=== PATIENT | male | born 1970 | race Caucasian/White ===

== ENCOUNTER 2020-10-23 15:11 | Emergency (ER) | payer MEDICAID, OTHER ==
[~2020-10-23] VITALS: Ht 167.6 cm; Wt 59.0 kg
[2020-10-23 16:08] LABS: Hematocrit 32.7 % (41.0-53.0); Hemoglobin 10.8 g/dL (13.5-17.5); Mean Corpuscular Hemoglobin 27.7 pg (28.0-32.0); Mean Corpuscular Volume 83.8 fL (80.0-100.0); Red Blood Cells 3.91 10^6/uL (4.5-5.90); Red Cell Distribution Width 18.4 % (11.8-14.3)
[2020-10-23 16:13] LABS: White Blood Cell 1.5 10^3/uL (4.4-10.8)
[2020-10-23 16:15] LABS: Band Neutrophils % (manual) 0; Basophils % (manual) 0 (0.0-2.0); Blast Cells 0; Metamyelocytes % 0; Myelocytes % 0; Promyelocytes % 0; Reactive Lymphocytes 0
[2020-10-23 16:30] LABS: Eosinophils % (manual) 2 (0-7); Lymphocytes % (manual) 31 (10.0-50.0); Monocytes % (manual) 18 (0-12)
[2020-10-23 16:31] LABS: Alkaline Phosphatase 91 U/L (45-117); Bilirubin, Total 0.2 mg/dL (0.2-1.0); Total Protein 7.2 g/dL (6.4-8.2)
[2020-10-23 16:52] LABS: Chloride 110 mmol/L (98-107); Potassium 3.8 mmol/L (3.5-5.1); Sodium 141 mmol/L (136-145)
[2020-10-23 17:02] LABS: Alanine Aminotransferase 53 U/L (16-61); Anion Gap 5 (5-15); Aspartate Aminotransferase 51 U/L (15-37); BUN/Creatinine Ratio 14.8; Blood Urea Nitrogen 9 mg/dL (7-18); Carbon Dioxide 26 mmol/L (21-32); GFR African American 179 mL/min; GFR Non-African American 148 mL/min; Glucose 96 mg/dL (74-106)
[2020-10-23 17:03] LABS: Calcium 8.3 mg/dL (8.5-10.1); Lipase 237 U/L (73-393)
[2020-10-23 19:43] LABS: Urine Bacteria FEW /hpf (None Seen); Urine Blood Negative /uL (Negative); Urine Budding Yeast FEW /hpf (None Seen); Urine Specific Gravity 1.015 (1.001-1.035); Urine WBC 28 /hpf (0 - 3)
[2020-10-24] MEDS ORDERED: cefTRIAXone 1GM/50ML D5W 50 ML IV ONE (03:45)
[2020-10-24 15:36] LABS: Hematocrit 33.6 % (41.0-53.0); Hemoglobin 11.1 g/dL (13.5-17.5); Mean Corpuscular Hemoglobin 27.6 pg (28.0-32.0); Mean Corpuscular Hgb Conc. 33.1 g/dL (32.0-36.0); Mean Corpuscular Volume 83.4 fL (80.0-100.0); Red Blood Cells 4.03 10^6/uL (4.5-5.90); Red Cell Distribution Width 18.4 % (11.8-14.3)
[2020-10-24 15:42] LABS: Band Neutrophils % (manual) 0; Basophils % (manual) 0 (0.0-2.0); Blast Cells 0; Metamyelocytes % 0; Myelocytes % 0; Promyelocytes % 0
[2020-10-24 16:00] VITALS: BP 118/76
[2020-10-24 16:01] LABS: Red Cell Distribution Width 18.1 % (11.8-14.3)
[2020-10-24 16:03] LABS: Hematocrit 33.4 % (41.0-53.0); Hemoglobin 11.2 g/dL (13.5-17.5); Mean Corpuscular Hgb Conc. 33.4 g/dL (32.0-36.0); Mean Corpuscular Volume 83.9 fL (80.0-100.0); Red Blood Cells 3.98 10^6/uL (4.5-5.90)
[2020-10-24 16:10] LABS: White Blood Cell 1.7 10^3/uL (4.4-10.8)
[2020-10-24 16:12] LABS: Basophils % (manual) 0 (0.0-2.0); Blast Cells 0; Myelocytes % 0; Promyelocytes % 0
[2020-10-24 16:32] LABS: INR 1.02 (0.9-1.15); Partial Thromboplastin Time 25.9 sec (23.6-33.0)
[2020-10-24 17:33] LABS: Band Neutrophils % (manual) 2; Eosinophils % (manual) 1 (0-7); Lymphocytes % (manual) 27 (10.0-50.0); Monocytes % (manual) 17 (0-12); Reactive Lymphocytes 2
[2020-10-24 17:34] LABS: Metamyelocytes % 1
[2020-10-24 17:44] LABS: Eosinophils % (manual) 2 (0-7); Lymphocytes % (manual) 35 (10.0-50.0); Monocytes % (manual) 13 (0-12); Reactive Lymphocytes 1
== END 2020-10-24 16:38 | disposition home or self-care (01) ==
LOC: ER 15:11 → EDBD 15:11 → ER 10-24 16:38
DX: N39.0 Urinary tract infection, site not specified (principal); D72.819 Decreased white blood cell count, unspecified; F17.210 Nicotine dependence, cigarettes, uncomplicated; J45.909 Unspecified asthma, uncomplicated; Z20.822 Contact with and (suspected) exposure to COVID-19
CPT/HCPCS: 36415; 71045; 74176; 80053; 81001; 83690; 85007; 85027; 85610; 85730; 87426; 96365; 99285; J0696